=== PATIENT | female | born 1945 | race Caucasian/White ===

== ENCOUNTER 2019-03-19 18:38 | Emergency (ER) | payer MEDICARE ==
--- NOTE | 2019-03-19 19:08 | UC ---
General HPI - HPI Summary HPI Summary: Patient is a pleasant 73-year-old female with a history of ADHD and chronic pain for which he takes Ritalin up to 3 times a day, methadone, Vicodin for breakthrough pain, singulair and betaxolol for tachycardia. Patient states she' s been being followed closely by her primary care doctor for elevated blood pressures but is not on medication. Patient states she was at her primary care provider on Thursday where she had some blood work drawn her blood pressure was in the 160 systolic. Patient was instructed to get a home blood pressure monitor. Patient states this morning she took her normal 1 dose of Ritalin. Patient states she did not take any additional medication. Patient states she did take her methadone and 1 Vicodin that she been gargling with some mild back pain. This evening patient checked her blood pressure was 190 systolic. Patient states she waited without tenderness rechecked and it was 209 systolic. Patient's been anxious and came here. Patient does not have any physical complaints. No chest pain or shortness of breath. No abdominal pain. No nausea vomiting. No headache. No vision changes. No lightheadedness. Patient 's been eating and drinking normally. Patient without any nausea, vomiting, diarrhea. Patient states she feels actually fine but is concerned that her blood pressure was high. Pt hs not taken any decongestant, drink 1 cup of coffee daily. Medications reviewed this visit - History of Current Complaint Chief Complaint: UCGeneralIllness Stated Complaint: HIGH BP Time Seen by Provider: 03/19/19 18:58 Hx Last Menstrual Period: N/A Pain Intensity: 0 - Allergy/Home Medications Allergies/Adverse Reactions: Allergies Allergy/AdvReac Type Severity Reaction Status Date / Time codeine Allergy See Comment Verified 03/19/19 19:00 PMH/Surg Hx/FS Hx/Imm Hx Previously Healthy: Yes - chronic back pain, anxiety, allergy, ADD - Surgical History Surgical History: Yes Surgery Procedure, Year, and Place: lower back surgery x2 2006 (laminectomy),. right knee replacement, left hand surgery from dog bite, joint replaced in left big toe,20+yrs ago arthroscopy left knee & NOW TOTAL KNEE NOW. PIA BREAST REDUCTION. C SECTION - Family History Known Family History: Positive: Non-Contributory - Social History Occupation: Retired Lives: Alone Alcohol Use: None Substance Use Type: None Smoking Status (MU): Former Smoker Type: Cigarettes Length of Time of Smoking/Using Tobacco: 15 YRS Have You Smoked in the Last Year: No When Did the Patient Quit Smoking/Using Tobacco: 30 yrs ago Review of Systems All Other Systems Reviewed And Are Negative: Yes Constitutional: Positive: Negative Skin: Positive: Negative Eyes: Positive: Negative ENT: Positive: Negative Respiratory: Negative: Shortness Of Breath Cardiovascular: Negative: Chest Pain Gastrointestinal: Negative: Nausea Genitourinary: Positive: Negative Motor: Negative: Weakness Neurological: Positive: Negative. Negative: Weakness Psychological: Positive: Negative Physical Exam - Summary Physical Exam Summary: Vital Signs Reviewed: Yes A+Ox3, mild anxious, no discomfort Eyes: Conjunctiva Clear, TOLU. EOM intact and full, no photophobia ENT: Hearing grossly normal TM x 2 clear, mmoist, uvula midline, no exudate, no erythema Neck: Positive: Supple Respiratory: Positive: No respiratory distress, No accessory muscle use + CTA throughout no w/r Cardiovascular: RRR nl s1, s2 no m/r CBT <2 sec abd soft + BS nt/nd no guarding, no distension Musculoskeletal Exam: REINOSO x 4 without difficulty Strength Intact, ROM Intact Neurological: Positive: Alert, + sensation throughout CN 2-12 intact and full + FNF b/l + heel/pineda b/l 5/5 abduction, flex/ext elbow, wrist against resistant 5/5 SLE, flex/ext knee, ankle + great toe extension + gross sensation throughout Psychological: Positive: Normal Response To Family Skin: Positive: no rash, no ecchymosis Triage Information Reviewed: Yes Vital Signs: Initial Vital Signs Temp 97.9 F 03/19/19 18:50 Pulse 71 03/19/19 18:50 Resp 16 03/19/19 18:50 BP 180/84 03/19/19 18:50 Pulse Ox 97 03/19/19 18:50 Re-Evaluation - Re-Evaluation First Eval Comment: Repeat blood pressures continued been 180 systolic both on the left and right extremity. Patient complains to be symptom-free. Spoke to patient's primary care provider, Dr. Daphne Hendricks. We'll the patient go home tonight to take a second double dose of her beta loy at that time. today only Encourage plenty of fluids. We'll write prescription for Lisinopril 10 mg daily the patient can start tomorrow. Discussed at length with pt with patient if she develops any symptoms she should call 911 and go the emergency department immediatly. Patient comfortable in agreement with plan. Course/Dx - Course Course Of Treatment: Patient presented to urgent care with her elevated blood pressure. Patient has been monitored by her primary for the same. Patient states his been 150s to 160s systolic. Today's been 190 then 209 systolic. Patient does not have any physical complaints. On exam vital signs do reveal an elevated blood pressure. Complete exam including neuro exam is non-concerning nonfocal. Patient was mildly very anxious when she first got here. Patient has since relaxed a little bit. Patient has a history. Advised patient to salvageable give her some water we will reassess her blood pressure little bit. Patient comfortable in agreement with plan. - Diagnoses Provider Diagnosis: Asymptomatic hypertension Discharge - Sign-Out/Discharge Documenting (check all that apply): Patient Departure All imaging exams completed and their final reports reviewed: No Studies - Discharge Plan Condition: Stable Disposition: HOME Prescriptions: Lisinopril 10 mg PO DAILY #30 tablet Patient Education Materials: Hypertension (ED) Referrals: Daphne Hendricks MD [Primary Care Provider] - (Call Thursday for a follow-up this week) Additional Instructions: - stay well hydrated - drink plenty of non-alcoholic, non-caffinated beverages - take your pain medication daily as prescribed - avoid foods high in salt - TONIGHT ONLY - take 2 of your beta loy medication (total 20mg Betaxolol) - starting tomorrow - fill the prescription for Lisinopril as ordered - Contact Dr. Hendricks's office on Thursday to schedule a follow-up appointment. If you develop a headache, dizziness, chest pain, shortness of breath, vision changes or ANY other concerns it is recommended you call 911 and go immediately to the emergency department for further treatment and evaluation - Billing Disposition and Condition Condition: STABLE Disposition: Home
[2019-03-19 19:57] VITALS: BP 182/80
== END 2019-03-19 20:58 | disposition home or self-care (01) ==
LOC: UCEAST 18:38
DX: I10 Essential (primary) hypertension (principal); Z87.891 Personal history of nicotine dependence; Z88.5 Allergy status to narcotic agent
CPT/HCPCS: 99212; G0463

== ENCOUNTER 2024-04-19 00:06 | Observation (INO) ==
[2024-04-19 02:32] LABS: Urine Appearance Clear; Urine Bilirubin Negative (Negative); Urine Blood Negative (Negative); Urine Color Yellow; Urine Glucose Negative (Negative); Urine Ketones 1+ (Negative); Urine Nitrite Negative (Negative); Urine Protein Trace (Negative); Urine Specific Gravity 1.024 (1.002-1.030); Urine Urobilinogen Negative (Negative)
[2024-04-19 02:39] LABS: ABS Lymphocytes 0.6 10^3/uL (1.0-4.8); ABS Monocytes 0.9 10^3/uL (0.0-0.9); ABS Neutrophils 14.2 10^3/uL (1.5-7.6); Hematocrit 34.3 % (35-45); Hemoglobin 11.3 g/dL (11.5-14.3); Lymphocyte % 4.1 %; Mean Corpuscular Hemoglobin 29.8 pg (27-33); Mean Corpuscular Volume 90.5 fL (80-97); Mean Platelet Volume 8.9 fL (7.5-11.2); Platelet Count 172 10^3/uL (150-450); Red Cell Distribution Width 13.2 % (12-17); White Blood Count 15.8 10^3/uL (3.8-11.8)
[2024-04-19 02:48] LABS: Urine Bacteria Absent /HPF (Absent); Urine Red Blood Cell 2+(6-10/hpf) /HPF (0-Trace); Urine Squamous Epithelial Cell Present /HPF (Absent); Urine White Blood Cell Trace(0-5/hpf) /HPF (0-Trace)
[2024-04-19 03:36] LABS: Albumin 3.9 g/dL (3.2-5.2); Albumin/Globulin Ratio 1.2 (1-3); C Reactive Protein 172.41 mg/L (<8.01); Calcium 9.3 mg/dL (8.6-10.3); Creatinine, Serum 0.98 mg/dL (0.51-0.95); Globulin 3.2 g/dL (2-4); Total Bilirubin 0.5 mg/dL (0.2-1.0); Total Protein 7.1 g/dL (6.4-8.9); eGFR CKD-EPI 58.3 (>60)
[2024-04-19 04:29] LABS: Activated Partial Thrombo Time 26.3 seconds (26.0-38.0); INR 1.19 (0.83-1.13)
[2024-04-19 04:44] LABS: High Sensitivity Troponin 1 Hr 15 pg/mL (<15)
[2024-04-19] MEDS: cefTRIAXone 1 gm/50 mL D5W 1 GM/50 ML BAG IV ONE (05:02)
[2024-04-19] MEDS ORDERED: Albuterol HFA INHALER 8 gm MDI INH PRN (05:40)
[2024-04-19] MEDS ORDERED: HYDROcodone/ACETAMIN 5/325 mg TAB PO PRN (05:43)
[2024-04-19] MEDS: Enoxaparin 40 MG/0.4 ML SYR SUBCUT SCH (06:12)
[2024-04-19] MEDS: DULoxetine DR 60 mg CAP PO SCH (08:16)
[2024-04-19] MEDS: BETAXOLOL 10 MG PO SCH (08:43)
[2024-04-19] MEDS: Calcium Carb (TUMS) 500 mg CHEW TAB PO PRN (11:29)
[2024-04-19] MEDS: Latanoprost 0.005% 2.5 ml BTL BOTH EYES SCH (21:10)
[2024-04-20] MEDS: cefTRIAXone 1 gm/50 mL D5W 1 GM/50 ML BAG IV SCH (05:02)
[2024-04-20 06:36] LABS: ABS Lymphocytes 1.3 10^3/uL (1.0-4.8); ABS Monocytes 0.8 10^3/uL (0.0-0.9); ABS Neutrophils 5.6 10^3/uL (1.5-7.6); Eosinophil % 0.6 %; Hematocrit 32.9 % (35-45); Mean Corpuscular Hemoglobin 30.6 pg (27-33); Mean Corpuscular Hgb Conc 33.6 g/dL (31-36); Mean Platelet Volume 8.1 fL (7.5-11.2); Platelet Count 187 10^3/uL (150-450); Red Blood Count 3.61 10^6/uL (3.63-4.92); Red Cell Distribution Width 12.9 % (12-17); White Blood Count 7.9 10^3/uL (3.8-11.8)
[2024-04-20 07:35] LABS: Calcium 8.8 mg/dL (8.6-10.3); Creatinine, Serum 0.92 mg/dL (0.51-0.95); Potassium 3.8 mmol/L (3.5-5.0); eGFR CKD-EPI 62.9 (>60)
[2024-04-20 11:04] VITALS: BP 119/56
[2024-04-21 23:22] LABS: Anaplasma phagocytophilum Negative (Negative); B. miyamotoi PCR, B Negative (Negative); Babesia divergens/MO-1 Negative (Negative); Babesia ducani Negative (Negative); Ehrlichia chaffeensis Negative (Negative); Ehrlichia ewingii/canis Negative (Negative); Ehrlichia muris eauclairensis Negative (Negative)
== END 2024-04-20 11:51 | disposition short-term general hospital (02) ==
LOC: ED 00:06 → EDHOLD 00:06
PROVIDERS: ADMIT Hospitalist; ATTEND Internal Medicine